=== PATIENT | female | born 1985 | race Caucasian/White ===

== ENCOUNTER 2016-04-11 16:07 | Emergency (ER) | payer BC ==
[2016-04-11 16:46] VITALS: BP 121/63
[2016-04-11] MEDS ORDERED: Ondansetron ODT TAB* 4 MG PO ONE (16:53)
--- NOTE | 2016-04-11 17:00 | UC ---
FLU HPI - HPI Summary HPI Summary: Fever, body aches, vomiting, diarrhea, and abdominal cramps since the middle of the night. Pt has asthma and is wheezing, coughing when she lies down. Does not have albuterol inhaler at this time. No blood in diarrhea or vomit. - History of Current Complaint Chief Complaint: UCGeneralIllness Stated Complaint: COUGH,BODY ACHES Time Seen by Provider: 04/11/16 16:42 Hx Obtained From: Patient Hx Last Menstrual Period: 03/21/16 ?: No Onset/Duration: Gradual Onset, Lasting Hours Severity Currently: Moderate Severity Initially: Moderate Associated Signs & Symptoms: Positive: Fever, Myalgia, Cough, Sore Throat - mild , Nasal Congestion, Headache, Vomiting, Diarrhea - Allergy/Home Medications Allergies/Adverse Reactions: Allergies Allergy/AdvReac Type Severity Reaction Status Date / Time Cefaclor [From [facility]] Allergy Intermediate Hives Verified 04/11/16 16:46 Home Medications: Home Medications Acetaminophen TAB* [Tylenol TAB*] 325 mg PO Q4H PRN 04/11/16 [History Confirmed 04/11/16] PMH/Surg Hx/FS Hx/Imm Hx Respiratory History Of: Reports: Asthma - Surgical History Surgical History: None - Family History Known Family History: Positive: Respiratory Disease - asthma - Social History Lives: With Family Alcohol Use: Rare Substance Use Type: None Smoking Status (MU): Never Smoked Tobacco - Immunization History Most Recent Influenza Vaccination: [id number] Review of Systems Constitutional: Fever, Chills, Fatigue Skin: Negative Eyes: Negative ENT: Sore Throat Respiratory: Cough Cardiovascular: Negative Gastrointestinal: Abdominal Pain, Vomiting, Diarrhea Genitourinary: Negative Motor: Negative Neurovascular: Negative Musculoskeletal: Negative Neurological: Negative Psychological: Negative All Other Systems Reviewed And Are Negative: Yes Physical Exam Triage Information Reviewed: Yes Appearance: No Pain Distress, Well-Nourished, Ill-Appearing - febrile Vital Signs: Initial Vital Signs Temp 101.3 F 04/11/16 16:43 Pulse 114 04/11/16 16:43 Resp 18 04/11/16 16:43 BP 121/63 04/11/16 16:43 Pulse Ox 97 04/11/16 16:43 Vital Signs Reviewed: Yes Eye Exam: Normal Eyes: Positive: Conjunctiva Clear ENT: Positive: Pharynx normal, Nasal congestion, TMs normal. Negative: Tonsillar swelling, Tonsillar exudate Dental Exam: Normal Neck exam: Normal Neck: Positive: Supple, Nontender, No Lymphadenopathy Respiratory Exam: Other - occ dry cough Respiratory: Positive: Lungs clear, Normal breath sounds, No respiratory distress, No accessory muscle use Cardiovascular: Positive: No Murmur, Tachycardia Abdomen Description: Positive: No Organomegaly, Soft. Negative: CVA Tenderness (R), CVA Tenderness (L), Distended, Guarding Bowel Sounds: Positive: Present Musculoskeletal Exam: Normal Neurological Exam: Normal Psychological Exam: Normal Skin Exam: Normal Flu Course/Dx - Differential Dx/Diagnosis Provider Diagnoses: gastroenteritis Discharge - Discharge Plan Condition: Stable Disposition: HOME Prescriptions: Albuterol HFA INHALER* [Ventolin HFA Inhaler*] 1 - 2 puff INH Q4H PRN #1 mdi PRN Reason: wheeze, cough Ondansetron TAB* [Zofran Tab*] 4 mg PO Q6H PRN #10 tab PRN Reason: Nausea Patient Education Materials: Gastroenteritis (ED), Viral Syndrome (ED) Forms: *Work Release Additional Instructions: Return here or go to the emergency department for any severe symptoms, or if you : * have trouble breathing that the inhaler doesn't help * vomit for more than 2 days * have diarrhea for more than a week * have fever longer than 5 days * develop fever after days of fever-free time * notice worsening abdominal pain, especially any pain that is very concentrated in one area
== END 2016-04-11 17:32 | disposition home or self-care (01) ==
LOC: UCCORT 16:07
DX: K52.9 Noninfective gastroenteritis and colitis, unspecified (principal); Z88.1 Allergy status to other antibiotic agents
CPT/HCPCS: 87502; 99202; A9270-GY; G0463